=== PATIENT | male | born 1970 | race Two or more races ===

== ENCOUNTER 2024-08-19 10:04 | Outpatient (AMB) | payer MEDICAID, SELFPAY ==
[2024-08-19 10:15] VITALS: BP 127/81; PULSE 68; RESP 18; TEMP 36.3; O2SAT 97; BMI 32.3
--- NOTE | 2024-08-19 10:15 | ACNOTE_ITS ---
Vital Signs 08/19/24 10:15 Height 1.65 m Height Method Stated Weight 87.997 kg Weight Measurement Method Standing Scale BMI 32.3 BP 127/81 Blood Pressure Source Automatic Cuff Blood Pressure Location Left Upper Arm Position Sitting Respiration 18 Pulse 68 Pulse Source Monitor Temp 97.3 F Temp Source Oral Pulse Oximetry (%) 97 Oxygen Delivery Method Room Air Allergies/Meds Allergies & Medications Allergies NKA* Allergy (Uncoded 08/19/24 10:16) Medication Reconciliation atorvastatin 40 mg tablet 40 mg PO QHS 1 month #30 tabs 08/19/24 [Rx Confirmed 08/19/24] cyclobenzaprine 5 mg tablet 5 mg PO QHS PRN muscle spasm 7 days #7 tabs 08/19/24 [Rx] naproxen 500 mg tablet 250 mg (1/2 x 500 mg) PO BID PRN pain 7 days #20 tabs 08/19/24 [Rx] MA Intake Visit Data Collection New Patient or Established: Established Patient (seen at [facility] within 3 years) Seen by Clinical Staff ONLY (RN/MA): No Pain Present Currently: Yes Pain Location: Elbow, Foot and Shoulder Pain scale:: 7 Pain Scale Used: Marie-Christine/[employer] Libr[employer] Required: Yes PCP or OBGYN visit in last 3 months: No Hx Now: No Do You Feel Safe at Home: Yes Authorities Contacted: N/A Smoking Status Smoking Status: Never smoker Immunization / Flu Flu Vaccine in the Last 12 Months: No Flu Vaccine Exclusion Criteria: No Exclusion Criteria Past Medical History Past Medical History NEUROLOGIC: Negative Neurological Disorders or Seizures CARDIAC: Positive Cardiac Disorders and Hypercholesterolemia (NO MEDS FOR 1 WEEK); Negative Congestive Heart Failure RESPIRATORY: Negative Chronic Obstructive Pulmonary Disease (COPD) GASTROINTESTINAL: Positive Gastrointestinal Disorders and Gastroesophageal Reflux Disease (HEARTBURN) GENITOURINARY: Negative Genitourinary Disorders or Renal Disease MUSCULOSKELETAL: Positive Fractures (RIGHT WRIST. HAD SURGERY) ENDOCRINE: Negative Endocrine Disorders, Diabetes Mellitus Type 1 or Diabetes Mellitus Type 2 HEMATOLOGIC: Negative Blood Disorders OTHER HISTORY: Negative Falls, Blood Transfusions, Blood Transfusion Reaction, Anesthesia Reactions, MRSA, Chicken Pox, Measles, Mumps or Cancer Family History FAMILY HISTORY: Negative Family Neurologic Problems, Family Psychiatric Problems, Family Respiratory Disorders, Family Cardiac Disorders, Family Gastrointestinal Problems, Family Cancer, Family Surgery or Family Anesthesia Reaction Surgical History SURGICAL: Positive Abdominal Surgery and Open Reduction Internal Fixation (RIGHT WRIST); Negative Nephrectomy or Neurologic Surgery Social History SMOKING STATUS: Smoking status: Never smoker ALCOHOL: Alcohol Intake: Current ALCOHOL FREQUENCY: Alcohol Intake Frequency: A Few Times a Week HOUSING: Housing: House Patient Portal [facility] Social History Living Situation History Housing: House Tobacco History Smoking Status: Never smoker Alcohol History Alcohol Intake: Current Alcohol Intake Frequency: A Few Times a Week Domestic Abuse History Do You Feel Safe at Home: Yes Review of Systems Report any current symptoms Only answer those that you have currently: Past Medical History Past Medical History Have you ever been diagnosed with any of the following: Neurological Problems Seizures: No Cardiology Problems Hypercholesterolemia: Yes (NO MEDS FOR 1 WEEK) Congestive Heart Failure: No Respiratory Problems Chronic Obstructive Pulmonary Disease (COPD): No Stomache/Intestinal Problems Gastroesophageal Reflux Disease: Yes (HEARTBURN) Genital/Urinary Problems Renal Disease: No Musculoskeletal Problems Fractures: Yes (RIGHT WRIST. HAD SURGERY) Endocrine Problems Diabetes Mellitus Type 1: No Diabetes Mellitus Type 2: No Other Problems Falls: No Blood Transfusions: No Blood Transfusion Reaction: No Anesthesia Reactions: No MRSA: No Chicken Pox: No Measles: No Mumps: No Cancer: No History of Present Illness HPI Narrative 53-year-old man with past medical history of mixed hyperlipidemia who came today to the [facility] due to chief complaint of right elbow pain. Patient stated that he has been in good state of health otherwise he endorsed right elbow pain every time he performed any movement with his arm and he stated like he feels that something is going to pop. Denied any other acute complaints like headache, palpitations, dizziness, chest pain or any other symptoms different than the mentioned above. He stated that he had multiple skin tags on his neck that sometimes are bothersome and he would like to have a referral for dermatology. During physical examination no difficulties with right elbow ROM, strength 5/5, sensation preserved only mild pronation pain as well as tenderness on medial right epicondyle. Due to patient pain and etiology most likely consistent with medial epicondylitis due to repetitive movement of the joint during work. Prednisone 40 mg was ordered to take 40 mg for 3 days, 30 mg for 3 days, 20 mg for 3 days and 10 mg for 3 days to taper off and a tendinitis brace and [id number] naproxen or ibuprofen every 12 hours if necessary. Mental Health Aide referral was given and I will follow-up in 2 weeks with labs A1c, CMP, and lipid panel. 04/01/2024: 53-year-old man with past medical history of mixed hyperlipidemia who agreed to be seen via telehealth for follow-up with labs. Patient denied any acute complaints he stated that continues to present right elbow pain otherwise he stated that he did not tendinitis brace and instead use a different one that he had at home to use the tendinitis brace as recommended as well as continue as needed ibuprofen or NSAIDs for pain. Follow-up labs were significant for ALT of 55, total cholesterol increased with 233, triglycerides 217, LDL 145, A1c 5.9 in prediabetic range ask about patient if he is taking his statin that you are on a medication that is not taking it for a while we also encouraged him about importance of healthy diet and lifestyle modifications, as well as at least minimum 150 minutes of exercise per week overall health condition and decrease incidence of metabolic syndrome, patient also was encour aged about and counseled about importance of decrease alcohol intake for which he agreed. Patient medication were refilled and we will follow-up in 6 months with lab results. 08/19/2024: 54-year-old man with past medical history of mixed hyperlipidemia and prediabetes who came today to the [facility] for follow-up, patient stated that did not bring labs for this visit. When asking about medication compliance he stated that he is not taking the statins because he stated that the pharmacy told him that only was prescribed for 1 month otherwise I review the medication prescription and refill and patient has been given enough refills to continue home medications, we encourage and counseled about importance of taking the statins due to risk of ASCVD 5.1% in next 10 years and moderate intensitry statins are recommended, when asked about alcohol intake he stated that his drinking only beer. We counseled the patient about decrease alcohol intake and patient stated that he will continue to cut down on his alcohol intake. Patient stated that overall state of health is feeling well however he stated that he has gained weight and he would like to do lifestyle modifications, exercise, healthy diet to try to decrease weight and feel better overall. Mr. Garcia only endorsed that continued to have the arm pain and that he has not been wearing the tendinitis brace recommended in previous appointments we encouraged to continue using that and take NSAIDs as needed for pain he endorsed as well left heel pain at the area of the calcaneus when he walks and that sometime it like a stabbing sensation in that area as well as neck pain on his left side that is tender to touch and that improved after taking some ibuprofen or Tylenol. Denies chest pain, headache, palpitations, nausea, vomiting or any other associated symptoms different than the mentioned above. We will order left foot lateral x-ray to rule out calcaneus spur and recommendation were given to use heel cushions, cyclobenzaprine 5 mg p.o. at bedtime for 7 days was prescribed for for muscular spasm/torticollis as well as naproxen 250 mg p.o. twice daily as needed and follow-up with lab results in 1 week via telehealth or in clinic. Review of Systems Review of Systems Narrative Review of Systems: Neck pain, torticollis, left heel pain. Objective/Exam Narrative Physical exam: General: No acute distress, well appearing, alert, interactive, overweight HEENT: NC/AT, PERRL, EOMI, Good conjugate gaze, moist mucous membranes, oropharynx clear. Neck: Pain and tenderness on left trapezius muscle and deltoid mild tenderness to the touch and tender points supple, No masses, No adenopathy, carotid pulse 2+ bilaterally without bruits, No JVD, normal range of motion. Chest: Symmetrical, atraumatic, and with equal expansion , Nontender on palpation no deformity and no crepitus. CVS: S1 and S2 present, Regular rate and rhythm, No murmurs, rubs or gallops perceived during auscultation. Lungs: Normal respiratory effort, CTAB, no wheezing, rhonchi or rales perceived during auscultation, No intercostal or subcostal retraction. Abdomen : Soft, no tenderness to palpation, no guarding ,no rebound, +BS, no organomegaly. Extremities: No edema, warm well perfused, normal tone and ROM, strength and sensation intact, tenderness during palpation at the right medial epicondyle, cap refill less than 2, +2 dp equal bilaterally, able to move all 4 extremities spontaneously. Skin: Multiple skin tags around the neck, no jaundice noted Neuro: AOx4, cranial nerves II through XII intact, reflex symmetric and sensati on normal, no focal neurologic deficits noted, GCS 15 Psych: Appropriate mood and affect. Assessment & Plan Diagnosis / Problem List (1) Muscle spasms of neck: Status: Acute Assessment & Plan: Patient stated that has been presenting left neck pain radiating to his shoulder for around 2 weeks, denied any exacerbating or relieving factors most likely pain is consistent with a calculus or muscle spasm of the trapezius and deltoid. Plan: Cyclobenzaprine 5 mg p.o. at bedtime for 7 days and naproxen 250 mg p.o. twice daily as needed for pain, follow-up in 1 week (2) Heel pain: Status: Acute Qualifiers: Laterality: left Qualified Code(s): M79.672 - Pain in left foot Assessment & Plan: Patient has been complaining of left heel pain for about 1 month that has been exacerbated when he is standing up, most likely pain could be related to calcaneal spurs for which left foot lateral x-ray was ordered and was recommended to the patient to use heel cautions to relieve the pain as well as NSAIDs naproxen 250 mg p.o. twice daily for 1 week as needed Plan: Pending left foot lateral x-ray to rule out calcaneal spur, naproxen 250 mg p.o. twice daily as needed for pain and follow-up in 1 week (3) Hyperlipemia: Status: Acute Qualifiers: Hyperlipidemia type: mixed hyperlipidemia Qualified Code(s): E78.2 - Mixed hyperlipidemia Assessment & Plan: Patient has past medical history of mixed hyperlipidemia labs from 03/2024 lipid panel showed total cholesterol 233, triglycerides 117, LDL 145 patient stated that that he has not been taking his medication, patient was counseled about importance of medications adherence to decrease the risk of Mace, lifestyle mo difications regarding healthy diet, daily exercise and decrease alcohol intake was given; atorvastatin 40 mg p.o. was refilled Plan: Continue atorvastatin 40 mg p.o. q. night and follow-up in 1 week with labs (4) Prediabetes: Status: Acute Assessment & Plan: Previous lab results 03/2024 A1c 5.9 showing prediabetes, healthy lifestyle modifications were given to encourage weight loss, 150 minutes exercise per week, decrease carbohydrate intake, avoid high processed food, decrease or quit alcohol intake Plan: Follow-up in 1 week with lab results (5) Medial epicondylitis of elbow: Status: Acute Qualifiers: Laterality: right Qualified Code(s): M77.01 - Medial epicondylitis, right elbow Assessment & Plan: patient still continues to complain of right elbow pain, most likely consistent with medial epicondylitis due to repetitive movement of elbow joint at work patient received a course of steroids which we encourage patient to take NSAIDs or ibuprofen as needed for pain as well as use a tendinitis brace as recommended before, will follow-up and in case of nonimprovement we will order imaging in the next visit Plan: Continue tendinitis brace naproxen as needed, follow-up in 1 week Orders: Orders Lipid Panel 08/19/24 E78.2 - Mixed hyperlipidemia Ambulatory Hemoglobin A1C 08/19/24 R73.03 - Prediabetes Comprehensive Metabolic Panel 08/19/24 E78.2 - Mixed hyperlipidemia, R73.03 - Prediabetes Additional Assessment Attending note: I, Vincent Bardales MD, attest that I was physically present for the frazier portions of the service and evaluated the patient with the resident and I reviewed and discussed the case with the resident and agree with the resident's findings and plans of care as documented above. Follow-up visit. Medications reviewed. Patient not taking statin. Labs not obtained prior to visit. Some continued arm pain, has not been wearing tendinitis brace. Also noting left heel pain, likely heel spur. We will check an x-ray, order heel cushions. Consider podiatry referral. May use muscle relaxer as well as nonsteroidal anti-inflammatory for pain symptoms. Counseled regarding diet, exercise, lifestyle changes including alcohol intake. Labs reordered today, follow-up in 1 week. Vincent Bardales MD Additional Plan Patient discussed with my attending Dr Jeffy Moreno MD PGY-3 Disclaimer: Despite multiple revisions, due to the dictation software being used, the document bellow may not be free of grammatical errors including phonetic/typographic errors. However, this does not deter from our commitment to providing health care in the patient's best interest in mind. Physician Billing Established Patient Established Patient: E/M Level 3-CPT 00006 Office Procedures [facility] Level of Care Nursing/Assessment Patient Status: Established Patient Nursing Assessment/Reassessment: Medication Reconciliation, Update PMH in EMR and Vital Signs Coordination of Care: Complex Care and Chronic Disease 1-5, Consent,records obtained, informed consent, Education Simp Pt/Fam, Lab and Imaging orders and Staff clarify orders Established Patient Charge Established Patient Point Assignment: 100 Established Patient Point Charge: EP Level 3 (80-115)
== END 2024-08-19 10:43 | disposition home or self-care (01) ==
LOC: HODAHC 10:04
PROVIDERS: Referring Provider Student in an Organized Health Care Education/Training Program; Supervising Provider Internal Medicine; Visit Provider Internal Medicine
DX: M77.01 Medial epicondylitis, right elbow (principal); M79.672 Pain in left foot; M54.2 Cervicalgia; E78.2 Mixed hyperlipidemia; R73.03 Prediabetes
CPT/HCPCS: 99213; G0463

== ENCOUNTER → 2024-08-20 | Outpatient (CLI) | payer MEDICAID, SELFPAY ==
--- NOTE | 2024-08-20 10:07 | XR_ITS ---
Examination: Foot, left, 3 views Technique: AP, oblique, lateral views foot, 3 views Date and time of exam: August 20, 2024 1049 hours INDICATIONS: Left heel pain beginning 2 months ago. FINDINGS: Moderate osteopenia Mild to moderate osteoarthritis first metatarsophalangeal joint 6 mm posterior 4 mm plantar bony calcaneal spurs Mild osteoarthritis intertarsal joints IMPRESSION: 6 mm posterior 4 mm plantar bony calcaneal spurs
== END | disposition home or self-care (01) ==
PROVIDERS: PCP Student in an Organized Health Care Education/Training Program; Referring Provider Internal Medicine; Visit Provider Internal Medicine
DX: M77.32 Calcaneal spur, left foot (principal)
CPT/HCPCS: 73630

== ENCOUNTER 2024-08-26 09:05 | Outpatient (AMB) | payer MEDICAID, SELFPAY ==
--- NOTE | 2024-08-26 09:05 | ACNOTE_ITS ---
Allergies/Meds Allergies & Medications Allergies NKA* Allergy (Uncoded 08/26/24 10:43) Medication Reconciliation naproxen 500 mg tablet 250 mg (1/2 x 500 mg) PO BID PRN pain 7 days #20 tabs 08/19/24 [Rx Confirmed 08/26/24] atorvastatin 40 mg tablet 40 mg PO QHS #30 tabs 08/26/24 [Rx Confirmed 08/26/24] MA Intake Visit Data Collection New Patient or Established: Established Patient (seen at [facility] within 3 years) Seen by Clinical Staff ONLY (RN/MA): No Pain Present Currently: No Pain scale:: 0 Pain Scale Used: Marie-Christine/Numerical Collections Attorney Required: Yes PCP or OBGYN visit in last 3 months: Yes Hx Now: No Do You Feel Safe at Home: Yes Authorities Contacted: N/A Smoking Status Smoking Status: Never smoker For Televisit only Telemed Video/Phone Visit: Yes Verbal consent obtained for Telemed visit?: Yes Verbal Consent witness name: YVES Telemed Video/Phone visit w/Clinical Staff: 21-30 min Immunization / Flu Flu Vaccine in the Last 12 Months: No Flu Vaccine Exclusion Criteria: No Exclusion Criteria Past Medical History Past Medical History NEUROLOGIC: Negative Neurological Disorders or Seizures CARDIAC: Positive Cardiac Disorders and Hypercholesterolemia (NO MEDS FOR 1 WEEK); Negative Congestive Heart Failure RESPIRATORY: Negative Chronic Obstructive Pulmonary Disease (COPD) GASTROINTESTINAL: Positive Gastrointestinal Disorders and Gastroesophageal Reflux Disease (HEARTBURN) GENITOURINARY: Negative Genitourinary Disorders or Renal Disease MUSCULOSKELETAL: Positive Fractures (RIGHT WRIST. HAD SURGERY) ENDOCRINE: Negative Endocrine Disorders, Diabetes Mellitus Type 1 or Diabetes Mellitus Type 2 HEMATOLOGIC: Negative Blood Disorders OTHER HISTORY: Negative Falls, Blood Transfusions, Blood Transfusion Reaction, Anesthesia Reactions, MRSA, Chicken Pox, Measles, Mumps or Cancer Family History FAMILY HISTORY: Negative Family Neurologic Problems, Family Psychiatric Problems, Family Respiratory Disorders, Family Cardiac Disorders, Family Gastrointestinal Problems, Family Cancer, Family Surgery or Family Anesthesia Reaction Surgical History SURGICAL: Positive Abdominal Surgery and Open Reduction Internal Fixation (RIGHT WRIST); Negative Nephrectomy or Neurologic Surgery Social History SMOKING STATUS: Smoking status: Never smoker ALCOHOL: Alcohol Intake: Current ALCOHOL FREQUENCY: Alcohol Intake Frequency: A Few Times a Week HOUSING: Housing: House Patient Portal Questionaires Social History Living Situation History Housing: House Tobacco History Smoking Status: Never smoker Alcohol History Alcohol Intake: Current Alcohol Intake Frequency: A Few Times a Week Domestic Abuse History Do You Feel Safe at Home: Yes Review of Systems Report any current symptoms Only answer those that you have currently: Past Medical History Past Medical History Have you ever been diagnosed with any of the following: Neurological Problems Seizures: No Cardiology Problems Hypercholesterolemia: Yes (NO MEDS FOR 1 WEEK) Congestive Heart Failure: No Respiratory Problems Chronic Obstructive Pulmonary Disease (COPD): No Stomache/Intestinal Problems Gastroesophageal Reflux Disease: Yes (HEARTBURN) Genital/Urinary Problems Renal Disease: No Musculoskeletal Problems Fractures: Yes (RIGHT WRIST. HAD SURGERY) Endocrine Problems Diabetes Mellitus Type 1: No Diabetes Mellitus Type 2: No Other Problems Falls: No Blood Transfusions: No Blood Transfusion Reaction: No Anesthesia Reactions: No MRSA: No Chicken Pox: No Measles: No Mumps: No Cancer: No History of Present Illness HPI Narrative 53-year-old man with past medical history of mixed hyperlipidemia who came today to the [facility] due to chief complaint of right elbow pain. Patient stated that he has been in good state of health otherwise he endorsed right elbow pain every time he performed any movement with his arm and he stated like he feels that something is going to pop. Denied any other acute complaints like headache, palpitations, dizziness, chest pain or any other symptoms different than the mentioned above. He stated that he had multiple skin tags on his neck that sometimes are bothersome and he would like to have a referral for dermatology. During physical examination no difficulties with right elbow ROM, strength 5/5, sensation preserved only mild pronation pain as well as tenderness on medial right epicondyle. Due to patient pain and etiology most likely consistent with medial epicondylitis due to repetitive movement of the joint during work. Prednisone 40 mg was ordered to take 40 mg for 3 days, 30 mg for 3 days, 20 mg for 3 days and 10 mg for 3 days to taper off and a tendinitis brace and [id number] naproxen or ibuprofen every 12 hours if necessary. Continuous Drier Operator referral was given and I will follow-up in 2 weeks with labs A1c, CMP, and lipid panel. 04/01/2024: 53-year-old man with past medical history of mixed hyperlipidemia who agreed to be seen via telehealth for follow-up with labs. Patient denied any acute complaints he stated that continues to present right elbow pain otherwise he stated that he did not tendinitis brace and instead use a different one that he had at home to use the tendinitis brace as recommended as well as continue as needed ibuprofen or NSAIDs for pain. Follow-up labs were significant for ALT of 55, total cholesterol increased with 233, triglycerides 217, LDL 145, A1c 5.9 in prediabetic range ask about patient if he is taking his statin that you are on a medication that is not taking it for a while we also encouraged him about importance of healthy diet and lifestyle modifications, as well as at least minimum 150 minutes of exercise per week overall health condition and decrease incidence of metabolic syndrome, patient also was encouraged about and counseled about importance of decrease alcohol intake for which he agreed. Patient medication were refilled and we will follow-up in 6 months with lab results. 08/19/2024: 54-year-old man with past medical history of mixed hyperlipidemia and prediabetes who came today to the [facility] for follow-up, patient stated that did not bring labs for this visit. When asking about medication compliance he stated that he is not taking the statins because he stated that the pharmacy told him that only was prescribed for 1 month otherwise I review the medication prescription and refill and patient has been given enough refills to continue home medications, we encourage and counseled about importance of taking the statins due to risk of ASCVD 5.1% in next 10 years and moderate intensitry statins are recommended, when asked about alcohol intake he stated that his drinking only beer. We counseled the patient about decrease alcohol intake and patient stated that he will continue to cut down on his alcohol intake. Patient stated that overall state of health is feeling well however he stated that he has gained weight and he would like to do lifestyle modifications, exercise, healthy diet to try to decrease weight and feel better overall. Mr. Garcia only endorsed that continued to have the arm pain and that he has not been wearing the tendinitis brace recommended in previous appointments we encouraged to continue using that and take NSAIDs as needed for pain he endorsed as well left heel pain at the area of the calcaneus when he walks and that sometime it like a stabbing sensation in that area as well as neck pain on his left side that is tender to touch and that improved after taking some ibuprofen or Tylenol. Denies chest pain, headache, palpitations, nausea, vomiting or any other associated symptoms different than the mentioned above. We will order left foot lateral x-ray to rule out calcaneus spur and recommendation were given to use heel cushions, cyclobenzaprine 5 mg p.o. at bedtime for 7 days was prescribed for for muscular spasm/torticollis as well as naproxen 250 mg p.o. twice daily as needed and follow-up with lab results in 1 week via telehealth or in clinic. 08/26/2024: 53-year-old man with past medical history of mixed hyperlipidemia who agreed to be seen via telehealth for follow-up with labs. Patient endorse that after being prescribed cyclobenzaprine and naproxen his right elbow pain and shoulder and neck pain neck pain completely improved as well as left heel pain. The patient stated that still is not using the tendinitis brace and that he will get it today in the pharmacy. Left foot x-ray showed6 mm posterior 4 mm plantar bony calcaneal spurs, will recommend to continue using heel cautions as prescribed to help relieve the pain and if the pain does not improve we will consider to refer to the customer specialist for further treatment and management. Significant labs showed glucose 102, creatinine 0.85, lipid panel cholesterol increased to 250, triglycerides 235, HDL 52 LDL 155, A1c 5.8, uric acid within normal limits 6.7. Patient stated that he was not taking the atorvastatin in the past, we encouraged about importance of medication adherence to decrease the risk ASCVD and mace, would encourage to continue healthy lifestyle with low- carb, low-fat diet, and at least 150 minutes of exercise per week due to his A1c is still on prediabetic range. will follow-up with labs in 3 months to follow-up liver enzymes to assess statin intolerance. Review of Systems Review of Systems Systems Reviewed: All systems reviewed, normal except as documented Objective/Exam Narrative Physical exam: Patient was seen via telehealth Assessment & Plan Diagnosis / Problem List (1) Muscle spasms of neck: Status: Acute Assessment & Plan: Patient stated that his neck and shoulder pain improve after naproxen and cyclobenzaprine, most likely pain was related to torticollis/muscle spasm of the trapezius and deltoid, will continue to recommend naproxen or NSAIDS as needed Plan: Continue naproxen as needed for pain; if pain does not improve or become worse called for follow up appointment (2) Heel pain: Status: Acute Qualifiers: Laterality: left Qualified Code(s): M79.672 - Pain in left foot Assessment & Plan: Patient was complaining of left heel pain exacerbated when he is standing up for which left foot lateral x-ray was ordered that showed 6 mm and 4 mm calcaneal spurs, we will recommend to continue using heel cushions to relieve the pain as well as NSAIDs as needed for pain, in case the pain does not improve or is not controlled, we will consider referral to customer specialist for further treatment and management. Plan: Continue NSAIDs as needed for pain, if pain does not improve with heel cautions we will consider to refer to customer specialist for further treatment and management. (3) Hyperlipemia: Status: Acute Qualifiers: Hyperlipidemia type: mixed hyperlipidemia Qualified Code(s): E78.2 - Mixed hyperlipidemia Assessment & Plan: Patient has past medical history of mixed hyperlipidemia compared to previous lipid panel total cholesterol has increased 250 triglycerides 235 HDL 52 and LDL 155 , patient stated that that he has not been taking his medication, patient was counseled about importance of medications adherence to decrease the risk of Mace, lifestyle modifications regarding healthy diet, daily exercise and decrease alcohol intake was given; atorvastatin 40 mg p.o. was refilled and encouraged to continue taking the medication as prescribed follow-up in 3 months with CMP to check liver enzymes Plan: Continue atorvastatin 40 mg p.o. q. night and follow-up in 3 months with CMP (4) Prediabetes: Status: Acute Assessment & Plan: Previous lab result A1c decreased to 5.8 still on prediabetic range. Healthy lifestyle modifications were given to encourage weight loss, 150 minutes exercise per week, decrease carbohydrate intake, avoid high processed food, decrease or quit alcohol intake Plan: Follow-up in 6 months with labs (5) Medial epicondylitis of elbow: Status: Acute Qualifiers: Laterality: right Qualified Code(s): M77.01 - Medial epicondylitis, right elbow Assessment & Plan: patient stated that after naproxen and cyclobenzaprine pain has improved, we encourage patient to take NSAIDs or ibuprofen as needed for pain as well as use a tendinitis brace as recommended before. Follow-up appointment in case pain does not improve or becomes worse for ordering to order imaging for further management Additional Plan Patient discussed with my attending Dr Jeffy Moreno MD PGY-3 Disclaimer: Despite multiple revisions, due to the dictation software being used, the document bellow may not be free of grammatical errors including phonetic/typographic errors. However, this does not deter from our commitment to providing health care in the patient's best interest in mind. Office Procedures [facility] Level of Care Nursing/Assessment Patient Status: Established Patient Nursing Assessment/Reassessment: Medication Reconciliation and Update PMH in EMR Coordination of Care: Complex Care and Chronic Disease 1-5, Consent,records obtained, informed consent, Education Simp Pt/Fam, Results/Orders obtained and Staff clarify orders Established Patient Charge Established Patient Point Assignment: 75 Telehealth Telemed Phone/Video with patient at home & Dr,PA,HOME MANAGEMENT SUPERVISOR: Yes
== END 2024-08-26 09:46 | disposition home or self-care (01) ==
LOC: HODAHC 09:05
PROVIDERS: PCP Student in an Organized Health Care Education/Training Program; Referring Provider Student in an Organized Health Care Education/Training Program; Supervising Provider Internal Medicine; Visit Provider Student in an Organized Health Care Education/Training Program
DX: E78.2 Mixed hyperlipidemia (principal); M62.838 Other muscle spasm; M77.32 Calcaneal spur, left foot; Z91.148 Patient's other noncompliance with medication regimen for other reason; R73.03 Prediabetes; M77.01 Medial epicondylitis, right elbow
CPT/HCPCS: 99212; G0463

== ENCOUNTER 2025-03-14 15:26 | Outpatient (AMB) | payer MEDICAID, SELFPAY ==
[2025-03-14 15:46] VITALS: BP 129/84; PULSE 67; RESP 16; TEMP 36.2; O2SAT 96; BMI 31.5
--- NOTE | 2025-03-14 15:46 | PD.RESCLINIC ---
Vital Signs 03/14/25 15:46 Height 1.65 m Height Method Stated Weight 85.786 kg Weight Measurement Method Standing Scale BMI 31.5 BP 129/84 Blood Pressure Source Automatic Cuff Blood Pressure Location Left Upper Arm Position Sitting Respiration 16 Pulse 67 Pulse Source Monitor Temp 97.2 F Temp Source Oral Pulse Oximetry (%) 96 Oxygen Delivery Method Room Air Allergies/Meds Allergies & Medications Allergies NKA* Allergy (Uncoded 03/14/25 15:47) Medication Reconciliation atorvastatin 40 mg tablet 40 mg PO QHS #30 tabs 03/14/25 [Rx] naproxen 500 mg tablet 250 mg (1/2 x 500 mg) PO BID PRN pain 7 days #20 tabs 03/14/25 [Rx] pantoprazole 40 mg tablet,delayed release 40 mg PO QAM PRN gerd #30 tabs 03/14/25 [Rx] MA Intake Visit Data Collection New Patient or Established: Established Patient (seen at [facility] within 3 years) Reason for Visit:: FOLLOW UP Pain Present Currently: Yes Pain Location: Unable to identify Pain scale:: 5 Pain Scale Used: Marie-Christine/Numerical Business Process Representative Required: No PCP or OBGYN visit in last 3 months: Yes Date of Last PCP or OBGYN visit: 08/19/24 Hx Now: No Do You Feel Safe at Home: No Authorities Contacted: N/A Smoking Status Smoking Status: Never smoker Immunization / Flu Flu Vaccine in the Last 12 Months: No Flu Vaccine Exclusion Criteria: No Exclusion Criteria Past Medical History Past Medical History NEUROLOGIC: Negative Neurological Disorders or Seizures CARDIAC: Positive Cardiac Disorders and Hypercholesterolemia (NO MEDS FOR 1 WEEK); Negative Congestive Heart Failure RESPIRATORY: Negative Chronic Obstructive Pulmonary Disease (COPD) GASTROINTESTINAL: Positive Gastrointestinal Disorders and Gastroesophageal Reflux Disease (HEARTBURN) GENITOURINARY: Negative Genitourinary Disorders or Renal Disease MUSCULOSKELETAL: Positive Fractures (RIGHT WRIST. HAD SURGERY) ENDOCRINE: Negative Endocrine Disorders, Diabetes Mellitus Type 1 or Diabetes Mellitus Type 2 HEMATOLOGIC: Negative Blood Disorders OTHER HISTORY: Negative Falls, Blood Transfusions, Blood Transfusion Reaction, Anesthesia Reactions, MRSA, Chicken Pox, Measles, Mumps or Cancer Family History FAMILY HISTORY: Negative Family Neurologic Problems, Family Psychiatric Problems, Family Respiratory Disorders, Family Cardiac Disorders, Family Gastrointestinal Problems, Family Cancer, Family Surgery or Family Anesthesia Reaction Surgical History SURGICAL: Positive Abdominal Surgery and Open Reduction Internal Fixation (RIGHT WRIST); Negative Nephrectomy or Neurologic Surgery Social History SMOKING STATUS: Smoking status: Never smoker SECOND HAND EXPOSURE: second hand exposure: No ALCOHOL: Alcohol Intake: Current ALCOHOL FREQUENCY: Alcohol Intake Frequency: A Few Times a Week HOUSING: Housing: [place] Patient Portal Questionaires PHQ-9 PHQ-2 Over the last 2 weeks, how often have you been bothered by any of the following problems? 1. Little interest or pleasure in doing things: not at all 2. Feeling down, depressed, or hopeless: not at all Total score: 0 PHQ-9 3. Trouble falling or staying asleep, or sleeping too much: Not at all 4. Feeling tired or having little energy: Not at all 5. Poor appetite or overeating: Not at all 6. Feeling bad about yourself - or that you are a failure or have let yourself or your family down: Not at all 7. Trouble concentrating on things, such as reading the newspaper or watching television: Not at all 8. Moving or speaking so slowly that other people could have noticed? - Or the opposite - being so fidgety or restless that you have been moving around a lot more than usual: not at all 9. Thoughts that you would be better off or of hurting yourself in some way: Not at all Total score: 0 If you checked off any problems, how difficult have these problems made it for you to do your work, take care of things at home, or get along with other people?: not difficult at all Source: Developed by Drs. Vinny Johnson, Dian uTttle, Rojas Stanley and colleagues, with an educational florence from [employer]. Depression screen completed yes Social History Living Situation History Marital Status: Single Lives With: Family Housing: House Tobacco History Smoking Status: Never smoker Second Hand Smoke Exposure: No Alcohol History Alcohol Intake: Current Alcohol Intake Frequency: A Few Times a Week Domestic Abuse History Do You Feel Safe at Home: No Review of Systems Report any current symptoms Only answer those that you have currently: Past Medical History Past Medical History Have you ever been diagnosed with any of the following: Neurological Problems Seizures: No Cardiology Problems Hypercholesterolemia: Yes (NO MEDS FOR 1 WEEK) Congestive Heart Failure: No Respiratory Problems Chronic Obstructive Pulmonary Disease (COPD): No Stomache/Intestinal Problems Gastroesophageal Reflux Disease: Yes (HEARTBURN) Genital/Urinary Problems Renal Disease: No Musculoskeletal Problems Fractures: Yes (RIGHT WRIST. HAD SURGERY) Endocrine Problems Diabetes Mellitus Type 1: No Diabetes Mellitus Type 2: No Other Problems Falls: No Blood Transfusions: No Blood Transfusion Reaction: No Anesthesia Reactions: No MRSA: No Chicken Pox: No Measles: No Mumps: No Cancer: No History of Present Illness HPI Narrative Patient is a 54 year old male with a past medical history of hyperlipidemia and GERD. Previous surgeries incluinding wrist fracture and hiatial hernia repair. 03/20/2025: Patient presented with a complain of elbow pain made worse with extension and reaching overhead. Motor strength intact. Sensation intact and equal bilaterally. No scapular wining. Negative empty can test. Patient in August 2024 had similar complain, patient was given Naproxen with no improvement. Patient works as [employer] in [place]. Referral made for Dr. Light, pending insurance authorization. Review of Systems Review of Systems Narrative Review of Systems: General appearance: NO weight change, NO fatigue, NO weakness, NO fever, NO chills, NO night sweats, No cough Skin: NO rash, NO itching, NO sores, NO moles HEENT: NO Trauma, NO nausea, NO vomiting, NO visual changes, NO blurry vision, NO double vision, NO tinnitus, NO vertigo, NO ear discharge, NO rhinorrhea, NO stuffiness, NO sneezing, NO allergy, NO epistaxis. NO Hoarseness, NO sore throat, NO swollen neck. Cardiac: NO Palpitations, NO dyspnea on exertion, NO orthopnea, NO paroxysmal nocturnal dyspnea, NO edema Respiratory: NO Shortness of Breath, NO Wheezing, NO Cough, NO Sputum, NO hemoptysis GI:NO appetite, NO nausea, NO vomiting, NO dysphagia, NO changes in bowel frequency, NO stool color, NO diarrhea, NO constipation, NO hemetemesis, NO hemorrhoids, NO melena, NO hematechezia, NO abdominal pain, NO jaundice Renal: NO frequency, NO hesitancy, NO urgency, NO hematuria, NO nocturia, NO incontinence MSK: NO muscle weakness, NO gout, NO arthritis, NO muscle stiffness, elbow pain with reaching over and extension. Neuro: NO headaches, NO tremors, NO weakness, NO paralysis, NO seizures, NO loss of consciousness, NO numbness. Hem: NO anemia, NO easy bruising/bleeding, NO petechiae, NO purpura Endo: NO heat/cold intolerance, NO excessive sweating, NO polyuria, NO polydipsia, NO polyphagia, NO thyroid problems, NO diabetes Pysch: NO mood, NO anxiety, NO depression Objective/Exam Narrative Physical exam: General Appearance: Alert and Orientated x3, well-nourished male who is sitting on exam room. Pain and creptis noted on right elbow with extension and reaching over shoulder. Thorax/Lungs: Symmetrical with good expansion. Chest and back non-tender. Lungs resonant to percussion. Breath sounds vesicular without crackles, wheezes, or rhonchi Cardiovascular/Peripheral Vascular: No jugular venous distention noted. S1 and S2 heart sounds regular, no murmurs or extra heart sounds auscultated. No peripheral edema noted. Abdomen: Bowel sounds are active. No tenderness to deep or light palpation. Assessment & Plan Diagnosis / Problem List (1) Tendinitis: Status: Acute Assessment & Plan: Patient continues to complain of elbow pain since August 2024 with no to limited improvement with Naproxen. Patient denied history of trauma to right elbow. 1 previous surgical repair to right wrist after a fall. Pain made worse with extension and over-reach. Refilled Naproxen. Referral to Orthopedics, pending insurance authorization. Plan: CK, MADELAINE, Calcium, Vitamin D, Uric Acid referral Dr. Light (2) Hyperlipemia: Status: Acute Qualifiers: Hyperlipidemia type: mixed hyperlipidemia Qualified Code(s): E78.2 - Mixed hyperlipidemia Assessment & Plan: Patient has a past medical history of hyperlipemia who is on Atorvastatin 40 mg HS. No recent labs. Plan: Atorvastatin Refilled Labs: A1c, TSH, Lipid, CMP Orders: Referrals Orthopedics M77.9 - Enthesopathy, unspecified Office Procedures [facility] Level of Care Nursing/Assessment Patient Status: Established Patient Nursing Assessment/Reassessment: BP Monitoring, Medication Reconciliation, Update PMH in EMR and Vital Signs Coordination of Care: Education Complex Pt/Fam, Consent,records obtained, informed consent, Education Simp Pt/Fam, Lab and Imaging orders and Staff clarify orders Established Patient Charge Established Patient Point Assignment: 110 Established Patient Point Charge: EP Level 3 (80-115) TB Screening LTBI Screening: Has patient traveled, was born, or resided for at least 1 month, or frequent border crossing into a country with an elevated TB rate: No Immunosuppression, current or planned (HIV, organ transplant, treated with biologic agents, steroids, or other immunosuppression medication): No Close contact to someone with infectious TB disease during lifetime: No Homelessness or incarceration, current or past: No TB testing indicated at this time (at least 1 yes above): No
== END 2025-03-14 16:46 | disposition home or self-care (01) ==
PROVIDERS: Supervising Provider Internal Medicine
DX: M77.9 Enthesopathy, unspecified (principal); E78.5 Hyperlipidemia, unspecified
CPT/HCPCS: 99213; G0463

== ENCOUNTER 2025-06-13 14:14 | Outpatient (AMB) | payer MEDICAID, SELFPAY ==
[2025-06-13 14:20] VITALS: BP 124/79; PULSE 69; RESP 16; TEMP 36.8; O2SAT 95; BMI 31.8
--- NOTE | 2025-06-13 14:20 | PD.RESCLINIC ---
Vital Signs 06/13/25 14:20 Height 1.65 m Height Method Stated Weight 86.75 kg Weight Measurement Method Standing Scale BMI 31.8 BP 124/79 Blood Pressure Source Automatic Cuff Blood Pressure Location Right Upper Arm Position Sitting Respiration 16 Pulse 69 Pulse Source Monitor Temp 98.3 F Temp Source Temporal Artery Scan Pulse Oximetry (%) 95 Oxygen Delivery Method Room Air Allergies/Meds Allergies & Medications Allergies NKA* Allergy (Uncoded 06/13/25 14:22) Medication Reconciliation allopurinol 100 mg tablet 100 mg PO BID hyperuricemia E79.0 1 month #60 tabs 06/13/25 [Rx] atorvastatin 40 mg tablet 40 mg PO QHS #30 tabs 06/13/25 [Rx] naproxen 500 mg tablet 250 mg (1/2 x 500 mg) PO BID PRN epicondylitis elbow, pain M77.01 1 month #60 tabs 06/13/25 [Rx] pantoprazole 40 mg tablet,delayed release 40 mg PO QAM PRN gerd #30 tabs 06/13/25 [Rx] MA Intake Visit Data Collection New Patient or Established: Established Patient (seen at [facility] within 3 years) Seen by Clinical Staff ONLY (RN/MA): No Pain Present Currently: No Pain scale:: 0 Pain Scale Used: Marie-Christine/Numerical PCP or OBGYN visit in last 3 months: Yes Do You Feel Safe at Home: Yes Authorities Contacted: N/A Smoking Status Smoking Status: Never smoker Immunization / Flu Flu Vaccine in the Last 12 Months: No Flu Vaccine Exclusion Criteria: Refused by Patient Past Medical History Past Medical History NEUROLOGIC: Negative Neurological Disorders or Seizures CARDIAC: Positive Cardiac Disorders and Hypercholesterolemia (NO MEDS FOR 1 WEEK); Negative Congestive Heart Failure RESPIRATORY: Negative Chronic Obstructive Pulmonary Disease (COPD) GASTROINTESTINAL: Positive Gastrointestinal Disorders and Gastroesophageal Reflux Disease (HEARTBURN) GENITOURINARY: Negative Genitourinary Disorders or Renal Disease MUSCULOSKELETAL: Positive Fractures (RIGHT WRIST. HAD SURGERY) ENDOCRINE: Negative Endocrine Disorders, Diabetes Mellitus Type 1 or Diabetes Mellitus Type 2 HEMATOLOGIC: Negative Blood Disorders OTHER HISTORY: Negative Falls, Blood Transfusions, Blood Transfusion Reaction, Anesthesia Reactions, MRSA, Chicken Pox, Measles, Mumps or Cancer Family History FAMILY HISTORY: Negative Family Neurologic Problems, Family Psychiatric Problems, Family Respiratory Disorders, Family Cardiac Disorders, Family Gastrointestinal Problems, Family Cancer, Family Surgery or Family Anesthesia Reaction Surgical History SURGICAL: Positive Abdominal Surgery and Open Reduction Internal Fixation (RIGHT WRIST); Negative Nephrectomy or Neurologic Surgery Social History SMOKING STATUS: Smoking status: Never smoker SECOND HAND EXPOSURE: second hand exposure: No ALCOHOL: Alcohol Intake: Current ALCOHOL FREQUENCY: Alcohol Intake Frequency: A Few Times a Week HOUSING: Housing: House Patient Portal Questionaires PHQ-9 PHQ-2 Over the last 2 weeks, how often have you been bothered by any of the following problems? 1. Little interest or pleasure in doing things: not at all PHQ-9 8. Moving or speaking so slowly that other people could have noticed? - Or the opposite - being so fidgety or restless that you have been moving around a lot more than usual: not at all Source: Developed by Drs. Vinny Johnson, Dian Tuttle, Rojas Stanley and colleagues, with an educational florence from [employer]. Social History Living Situation History Lives With: Family Housing: House Tobacco History Smoking Status: Never smoker Second Hand Smoke Exposure: No Alcohol History Alcohol Intake: Current Alcohol Intake Frequency: A Few Times a Week Domestic Abuse History Do You Feel Safe at Home: Yes Review of Systems Report any current symptoms Only answer those that you have currently: Past Medical History Past Medical History Have you ever been diagnosed with any of the following: Neurological Problems Seizures: No Cardiology Problems Hypercholesterolemia: Yes (NO MEDS FOR 1 WEEK) Congestive Heart Failure: No Respiratory Problems Chronic Obstructive Pulmonary Disease (COPD): No Stomache/Intestinal Problems Gastroesophageal Reflux Disease: Yes (HEARTBURN) Genital/Urinary Problems Renal Disease: No Musculoskeletal Problems Fractures: Yes (RIGHT WRIST. HAD SURGERY) Endocrine Problems Diabetes Mellitus Type 1: No Diabetes Mellitus Type 2: No Other Problems Falls: No Blood Transfusions: No Blood Transfusion Reaction: No Anesthesia Reactions: No MRSA: No Chicken Pox: No Measles: No Mumps: No Cancer: No History of Present Illness HPI Narrative Patient is a 54 year old male with a past medical history of hyperlipidemia and GERD. Previous surgeries incluinding wrist fracture and hiatial hernia repair. 03/20/2025: Patient presented with a complain of elbow pain made worse with extension and reaching overhead. Motor strength intact. Sensation intact and equal bilaterally. No scapular wining. Negative empty can test. Patient in August 2024 had similar complain, patient was given Naproxen with no improvement. Patient works as [employer] in [place]. 06/13/2025: Patient presented to the office for follow up on labs and inquire about referral for orthopedic physician. Orthopedic referral approved for history of elbow pain pain. Address and phone number provider for patient to follow up if no call is placed. Patient complaining of lower lumber pain-->lumbar sacral spine ordered. Lipid Panel (03/27/2025) Cholesterol 219, Triglycerides 324, HDL 44 LDL 118 A1c 5.7 TSH 1.50 Vitamin D-25 hydroxy 21.5 (low) Uric Aci 9.5 (high) Low vitamin D--->2,000 units once dialy of vitamin D Allopurinol started given elevated uric acid. Review of Systems Review of Systems Narrative Review of Systems: General appearance: NO weight change, NO fatigue, NO weakness, NO fever, NO chills, NO night sweats, No cough Skin: NO rash, NO itching, NO sores, NO moles HEENT: NO Trauma, NO nausea, NO vomiting, NO visual changes, NO blurry vision, NO double vision, NO tinnitus, NO vertigo, NO ear discharge, NO rhinorrhea, NO stuffiness, NO sneezing, NO allergy, NO epistaxis. NO Hoarseness, NO sore throat, NO swollen neck. Cardiac: NO Palpitations, NO dyspnea on exertion, NO orthopnea, NO paroxysmal nocturnal dyspnea, NO edema Respiratory: NO Shortness of Breath, NO Wheezing, NO Cough, NO Sputum, NO hemoptysis GI:NO appetite, NO nausea, NO vomiting, NO dysphagia, NO changes in bowel frequency, NO stool color, NO diarrhea, NO constipation, NO hemetemesis, NO hemorrhoids, NO melena, NO hematechezia, NO abdominal pain, NO jaundice Renal: NO frequency, NO hesitancy, NO urgency, NO hematuria, NO nocturia, NO incontinence MSK: NO muscle weakness, NO gout, NO arthritis, NO muscle stiffness, Elbow pain & lumbar pain, generalized body aches Neuro: NO headaches, NO tremors, NO weakness, NO paralysis, NO seizures, NO loss of consciousness, NO numbness. Hem: NO anemia, NO easy bruising/bleeding, NO petechiae, NO purpura Endo: NO heat/cold intolerance, NO excessive sweating, NO polyuria, NO polydipsia, NO polyphagia, NO thyroid problems, NO diabetes Pysch: NO mood, NO anxiety, NO depression Objective/Exam Narrative Physical exam: General Appearance: Alert and Orientated x3, well-nourished male who is sitting on exam room, NEGATIVE straight leg raise Thorax/Lungs: Symmetrical with good expansion. Chest and back non-tender. Lungs resonant to percussion. Breath sounds vesicular without crackles, wheezes, or rhonchi Cardiovascular/Peripheral Vascular: No jugular venous distention noted. S1 and S2 heart sounds regular, no murmurs or extra heart sounds auscultated. No peripheral edema noted. Abdomen: Bowel sounds are active. No tenderness to deep or light palpation. Assessment & Plan Diagnosis / Problem List (1) Lumbar back pain: Status: Acute Assessment & Plan: Patient complaining of generalized back pain. Denied trauma. No urinary incontinence. Lower motor bilateral 5/5 w/ full sensation. Negative straight leg test. Plan: lumbar x-ray (2) Tendinitis: Status: Acute Assessment & Plan: Patient continues to complain of elbow pain since August 2024 with no to limited improvement with Naproxen. Patient denied history of trauma to right elbow. 1 previous surgical repair to right wrist after a fall. Pain made worse with extension and over-reach. Refilled Naproxen. Referral to Orthopedics, pending insurance authorization. Plan: -Naproxen PRN -Orthopedic physician approved (3) Hyperlipemia: Status: Acute Qualifiers: Hyperlipidemia type: mixed hyperlipidemia Qualified Code(s): E78.2 - Mixed hyperlipidemia Assessment & Plan: Patient has a past medical history of hyperlipemia who is on Atorvastatin 40 mg HS. Lipid Panel (03/27/2025) Cholesterol 219, Triglycerides 324, HDL 44 LDL 118 Plan: -Continue current dose (4) Elevated uric acid in blood: Status: Acute Assessment & Plan: Hyperurecimia which was noted on previous labs. Patient started on allopurinol. Plan: new medication allopurinol 100 mg BID (5) Vitamin D deficiency: Status: Acute Assessment & Plan: Low vitmain D on previous labs from March 2025 Plan: 2,000 units vitamin D for the next 3 months - The patient's plan was discussed with attending Dr. Kenneth Frausto MD PGY2 Internal Medicine Orders: Orders XR lumbar spine 1V 06/13/25 Office Procedures [facility] Level of Care Nursing/Assessment Patient Status: Established Patient Nursing Assessment/Reassessment: Medication Reconciliation, Update PMH in EMR and Vital Signs Coordination of Care: Complex Care/Chronic Disease 5 or more, Education Complex Pt/Fam, Consent,records obtained, informed consent, Lab and Imaging orders, Results/Orders obtained and Staff clarify orders Established Patient Charge Established Patient Point Assignment: 120 Established Patient Point Charge: EP Level 4 (120-155)
== END 2025-06-13 15:22 | disposition home or self-care (01) ==
LOC: HODAHC 14:14
PROVIDERS: Supervising Provider Internal Medicine
DX: M54.50 Low back pain, unspecified (principal); M77.8 Other enthesopathies, not elsewhere classified; E78.5 Hyperlipidemia, unspecified; K21.9 Gastro-esophageal reflux disease without esophagitis; E79.0 Hyperuricemia without signs of inflammatory arthritis and tophaceous disease; E55.9 Vitamin D deficiency, unspecified
CPT/HCPCS: 99214; G0463

== ENCOUNTER → 2025-07-07 | Outpatient (CLI) | payer MEDICAID, SELFPAY ==
--- NOTE | 2025-07-07 10:40 | XR_ITS ---
EXAMINATION: Lumbar spine 2 views TECHNIQUE: AP lateral lumbar spine 2 views Date and time: July 07, 2025, 1059 hours INDICATIONS: Low back pain beginning 3 months ago. FINDINGS: Adequate alignment lumbar vertebral bodies Diffuse mild to moderate lumbar disc narrowing Prominent lumbar spondylosis No spondylolisthesis IMPRESSION: No acute lumbar fracture Mild to moderate diffuse lumbar degenerative disc disease
== END | disposition home or self-care (01) ==
DX: M51.360 Other intervertebral disc degeneration, lumbar region with discogenic back pain only (principal)
CPT/HCPCS: 72020